=== PATIENT | male | born 1955 | race Caucasian/White ===

== ENCOUNTER 2018-01-16 22:53 | Emergency (ER) | payer BC, SELFPAY ==
[2018-01-16 22:53] VITALS: BP 153/75; PULSE 65; RESP 16; TEMP 36.7; O2SAT 99; BMI 23.2
--- NOTE | 2018-01-16 23:33 | EKG12_ITS ---
Test Reason : CP Blood Pressure : / mmHG Vent. Rate : 064 BPM Atrial Rate : 064 BPM P-R Int : 158 ms QRS Dur : 104 ms QT Int : 416 ms P-R-T Axes : 081 006 046 degrees QTc Int : 429 ms Normal sinus rhythm with sinus arrhythmia RSR' or QR pattern in V1 suggests right ventricular conduction delay Borderline ECG Confirmed by RAEANN HICKS, DAVI ([id number]), photographic editor MARGARETH CAMP ([id number] on 01/20/2018 10:21:42 AM Referred By: DEV Confirmed By:DAVI CARY MD
--- NOTE | 2018-01-16 23:33 | RAD_ITS ---
STUDY: X-RAY CHEST REASON FOR EXAM: Male, 62 years old. Chest pain TECHNIQUE: Frontal and lateral views of the chest. COMPARISON: None. FINDINGS: No pneumothorax. No pleural effusion. Chronic lung changes. No focal consolidation. Normal size heart. Normal mediastinum and regis. Normal visualized pulmonary arteries. Normal visualized aortic arch and descending thoracic aorta. There are diffuse degenerative changes of the visualized thoracic spine. Compression fracture deformity age indeterminate what appears to be T11 and L2. However dedicated imaging of the thoracic spine would be recommended. There is degenerative osteoarthritis of the bilateral shoulders. There is no demonstrated abnormality of the visualized soft tissue structures of the upper abdomen. RAD/Chest PA and Lateral IMPRESSION: No acute cardiac pulmonary disease identified. There is age-indeterminate compression fracture deformities of what appears to be T11 and L2. No prior studies are available for comparison. Recommend dedicated imaging of the thoracic and lumbar spine. Electronically Signed: Lorenzo Schneider, at 0:19 EST Tel , Service support ,
--- NOTE | 2018-01-16 23:36 | ED.DCSUM_ITS ---
- ER Visit Summary Date of Service: 01/16/18 Chief Complaint: chest pain History of Present Illness: The patient is a 62 M who presents for chest pain since this morning. Patient states onset was at rest this morning. Prior to that he had been sleeping. It is left-sided without any radiation into arm, ri ght side of the chest, back, abdomen, neck. Pain is a squeezing tightness and currently 5 out of 10. It is worse with deep breaths and with sitting up. Patient has not taken anything for the pain today. He has not been pain-free at any point today. Patient denies any history of coronary artery disease, diabetes, hypertension, VTE, tobacco use, family history of coronary artery disease. He does have hypercholesterolemia. Patient denies any nausea or vomiting, cough, congestion, fever or recent illness. he has not taken any aspirin today. Physical Examination: Vital signs: afebrile, hemodynamically stable, no hypoxia on room air General: well nourished, well developed, in no distress Skin: warm, dry, no rash, no pallor HEENT: normocephalic and atraumatic; PERRL, EOMI, moist mucous membranes Cardiovascular: regular rate and rhythm without murmurs, no peripheral edema, 2+ pulses all distal extremities, no chest wall tenderness Respiratory: No increased work of breathing, lungs are clear to auscultation bilaterally, no rales, rhonchi or wheezing Abdominal: Abdomen is soft, nontender with normoactive bowel sounds, no guarding or rebound, no masses MSK: Moves all extremities, no deformities, normal strength Neuro: Awake and alert, oriented ?4. No facial droop, sensation and motor function intact and symmetric Test Results: Abnormal Lab Results 01/16/18 01/16/18 01/16/18 23:25 23:25 23:25 WBC 5.6 RBC 4.65 Hgb 14.7 Hct 43.4 MCV 93.3 MCH 31.6 MCHC 33.9 RDW 13.2 RDW Differential 44.1 H Plt Count 213 MPV 10.5 Immature Gran % (Auto) 0.000 Neut % (Auto) 64.1 Lymph % (Auto) 20.6 Riley % (Auto) 10.8 H Eos % (Auto) 3.2 Baso % (Auto) 1.3 H Absolute Neuts (auto) 3.6 Absolute Lymphs (auto) 1.15 Total Counted Not Reportable D-Dimer Quant (PE/DVT) < 0.27 L Sodium 139 Potassium 3.7 Chloride 107 Carbon Dioxide 26.0 Anion Gap 6 BUN 20 H Creatinine 0.92 Estim Creat Clear Calc 78.48 Est GFR (MDRD) Af Amer 106 Est GFR (MDRD) Non-Af 88 BUN/Creatinine Ratio 21.7 H Glucose 97 Calcium 8.5 Troponin I < 0.015 01/17/18 02:24 WBC RBC Hgb Hct MCV MCH MCHC RDW RDW Differential Plt Count MPV Immature Gran % (Auto) Neut % (Auto) Lymph % (Auto) Riley % (Auto) Eos % (Auto) Baso % (Auto) Absolute Neuts (auto) Absolute Lymphs (auto) Total Counted D-Dimer Quant (PE/DVT) Sodium Potassium Chloride Carbon Dioxide Anion Gap BUN Creatinine Estim Creat Clear Calc Est GFR (MDRD) Af Amer Est GFR (MDRD) Non-Af BUN/Creatinine Ratio Glucose Calcium Troponin I < 0.015 Clinical Impression(s) from Imaging Studies Chest X-Ray 01/16/18 23:33 IMPRESSION: No acute cardiac pulmonary disease identified. There is age-indeterminate compression fracture deformities of what appears to be T11 and L2. No prior studies are available for comparison. Recommend dedicated imaging of the thoracic and lumbar spine. Electronically Signed: Lorenzo Schneider, at 0:19 EST Tel , Service support , Medications Given Discontinued Medications Aspirin (Aspirin, Baby) 324 mg PO X1 STA Stop: 01/16/18 23:34 Last Admin: 01/17/18 00:18 Dose: 324 mg Nitroglycerin (Nitrostat) 0.4 mg SUBLINGUAL Q5M TONO Stop: 01/16/18 23:56 Last Admin: 01/17/18 00:40 Dose: 0.4 mg Admin: 01/17/18 00:29 Dose: 0.4 mg Admin: 01/17/18 00:18 Dose: 0.4 mg Emergency Department Course and Treatment: Patient presents with constant left- sided chest pain since this morning, and was given aspirin and 3 nitros. He had no significant and change in his pain with the nitroglycerin. He declined any further medication for pain. EKG showed a sinus rhythm without ischemia or ectopy. Initial troponin negative. Because the pain is pleuritic in nature d- dimer was also included and was negative. Labs were unremarkable otherwise. Chest x-ray showed no infiltrate or pneumothorax. He did have compression fractures of T11 and L2 noted, and patient states that he knows about these compression fractures and they are chronic. Patient's risk factors for coronary artery disease are his age and his history of hypercholesterolemia. His heart score is 3, making him low risk for 30-day Mace. We discussed a 3-hour rule out, and patient was amenable to this plan. Repeat EKG and troponin were unchanged. No life-threatening cause of patient's left-sided chest pain was noted, and he was discharged home and is to follow-up with his primary care provider. He will use anti-inflammatories as needed for pain. Patient agreed with this plan and was discharged. Treatment Plan: [] Disposition: [] Impression: Atypical chest pain, chronic vertebral compression fractures of T11 and L2 This note was generated with [employer] dictation software. It may contain incorrect words, spelling, and punctuation that were not noted in review of the chart prior to signing ED Disposition - Plan for ED Patient: Disposition: Home or Assisted Living Chief Complaint: Chest Pain Instructions: ED Chest Pain Atypical Unkn Cause Referrals: Kaleigh Sifuentes [Primary Care Provider] - 3-5 Days Additional Instructions: Your workup tonight showed no concerning findings for a heart attack, pneumonia, a blood clot in your lungs, or any life-threatening cause of your chest pain. Please take nonsteroidal anti-inflammatories for your pain. If you are taking Celebrex, do not take ibuprofen or naproxen at the same time, as they are similar medications. Please follow-up with your primary care doctor for another evaluation, especially if this pain continues. If you have any worsening of your condition or any new concerning symptoms, please return immediately to the emergency department for another evaluation.
[2018-01-16 23:45] VITALS: O2SAT 100
[2018-01-16 23:52] LABS: Absolute Lymphocyte Count 1.15 X10^3/ul (0.83-4.51); Absolute Neutrophil Count 3.6 X10^3/uL (2.0-7.7); Basophil# 0.07 X10^3/uL; Basophil% 1.3 % (0-1); Eosinophil# 0.18 X10^3/uL; Eosinophils% 3.2 % (0-5); Hematocrit 43.4 % (40-54); Hemoglobin 14.7 g/dl (13.0-16.5); Lymphocyte # 1.15 X10^3/ul (4.0); Lymphocyte % 20.6 % (19-41); Mean Corp Hgb Conc 33.9 g/gl (32-36); Mean Corpuscular Hgb 31.6 pg (27.0-32.0); Mean Corpuscular Volume 93.3 fL (80-94); Mean Platelet Vol. 10.5 fl (6.2-12.0); Monocyte% 10.8 % (0-10); Neutrophil # 3.58 X10^3/uL (2.7-7.7); Neutrophil % 64.1 % (47-70); Platelet Count 213 K/mm3 (150-450); RBC Distribution Width CV 13.2 % (11.6-14.6); RBC Distribution Width SD 44.1 fl (35.1-43.9); Red Blood Count 4.65 M/mm3 (4.6-6.2); White Blood Count 5.6 K/mm3 (4.4-11.0)
[2018-01-16 23:53] LABS: POSITIVE COUNT NO; POSITIVE DIFFERENTIAL NO; POSITIVE MORPHOLOGY NO
[2018-01-17] VITALS (8 sets, daily range): BP systolic 102–129; BP diastolic 60–72; PULSE 59–74; RESP 15–22; O2SAT 97–100
[2018-01-17 00:07] LABS: Anion Gap 6 (5-15); BUN 20 mg/dL (7-18); BUN/Creat Ratio 21.7 RATIO (10-20); Calcium,Total 8.5 mg/dL (8.5-10.1); Chloride 107 mmol/L (98-107); Creatinine, Serum 0.92 mg/dL (0.70-1.30); EST Glomerular Filtration Rate 88 mL/min (>60); Est Glom Filt Rate - Afr Amer 106 mL/min (>60); Estimated Creatinine Clearance 78.48 ml/min; Glucose 97 mg/dL (74-106); Potassium 3.7 mmol/L (3.5-5.1); Sodium Level 139 mmol/L (136-145)
[2018-01-17] MEDS: Aspirin 81 MG TAB.CHEW 324 MG PO (00:18)
[2018-01-17 01:13] LABS: D-Dimer Quantitative (DVT/PE) < 0.27 FEU/ug/m (0.27-0.49)
--- NOTE | 2018-01-17 02:00 | EKG12_ITS ---
Test Reason : REPEAT Blood Pressure : / mmHG Vent. Rate : 056 BPM Atrial Rate : 056 BPM P-R Int : 170 ms QRS Dur : 102 ms QT Int : 412 ms P-R-T Axes : 075 -01 032 degrees QTc Int : 397 ms Sinus bradycardia Otherwise normal ECG Confirmed by RAEANN HICKS, DAVI ([id number]), book editor MARGARETH CAMP ([id number]) on 01/20/2018 10:21:02 AM Referred By: DEV Confirmed By:DAVI CARY MD
--- NOTE | 2018-01-17 03:40 | ED.DEP ---
ED Disposition - Plan for ED Patient: Disposition: Home or Assisted Living Chief Complaint: Chest Pain Instructions: ED Chest Pain Atypical Unkn Cause Referrals: Kaleigh Sifuentes [Primary Care Provider] - 3-5 Days Additional Instructions: Your workup tonight showed no concerning findings for a heart attack, pneumonia, a blood clot in your lungs, or any life-threatening cause of your chest pain. Please take nonsteroidal anti-inflammatories for your pain. If you are taking Celebrex, do not take ibuprofen or naproxen at the same time, as they are similar medications. Please follow-up with your primary care doctor for another evaluation, especially if this pain continues. If you have any worsening of your condition or any new concerning symptoms, please return immediately to the emergency department for another evaluation.
== END 2018-01-17 03:48 | disposition home or self-care (01) ==
PROVIDERS: Emergency Provider Emergency Medicine
DX: R07.89 Other chest pain (principal); M48.55XA Collapsed vertebra, not elsewhere classified, thoracolumbar region, initial encounter for fracture; E78.00 Pure hypercholesterolemia, unspecified
CPT/HCPCS: 71046; 80048; 84484; 85025; 85379; 93005; 99285; A4216